=== PATIENT | male | born 1975 | race Caucasian/White ===

== ENCOUNTER 2018-04-13 10:47 | Emergency (ER) | payer MEDICAID ==
[2018-04-13 11:44] LABS: ADD UMIC NO; UR ASCORBIC ACID NEGATIVE (NEGATIVE); UR BILIRUBIN (Dip) NEGATIVE (NEGATIVE); UR BLOOD (Dip) NEGATIVE (NEGATIVE); UR CLARITY CLEAR (CLEAR); UR COLOR YELLOW (YELLOW); UR GLUCOSE (Dip) NEGATIVE (NEGATIVE); UR KETONES (Dip) TRACE mg/dL (NEGATIVE); UR LEUKOCYTE ESTERASE (Dip) NEGATIVE Leu/ul (NEGATIVE); UR NITRITE (Dip) NEGATIVE (NEGATIVE); UR SPECIFIC GRAVITY (Dip) 1.019 (1.003-1.030); UR TOTAL PROTEIN (Dip) NEGATIVE (NEGATIVE); UR UROBILINOGEN (Dip) NEGATIVE (NEGATIVE)
== END 2018-04-13 13:47 | disposition home or self-care (01) ==
LOC: FTE 10:47
DX: N43.3 Hydrocele, unspecified (principal); F41.9 Anxiety disorder, unspecified; J02.9 Acute pharyngitis, unspecified; R19.07 Generalized intra-abdominal and pelvic swelling, mass and lump
CPT/HCPCS: 76870; 81003; 87591; 99284-25

== ENCOUNTER 2018-04-19 12:31 | Emergency (ER) | payer MEDICAID ==
[2018-04-19] MEDS: IBUPROFEN 600 MG TAB PO (13:43)
[2018-04-19] MEDS: LORAZEPAM 1 MG TAB PO (13:43)
== END 2018-04-19 13:47 | disposition home or self-care (01) ==
LOC: FTE 12:31
DX: K11.21 Acute sialoadenitis (principal)
CPT/HCPCS: 93005; 99284